=== PATIENT | male | born 1965 | race Caucasian/White ===

== ENCOUNTER 2017-02-14 12:25 | Emergency (ER) | payer BC, OTHER ==
[2017-02-14 12:30] VITALS: RESP 20; TEMP 98
[2017-02-14] MEDS ORDERED: HYDROcodone/APAP 7.5-325MG 1 EACH TAB PO ONE (12:49)
[2017-02-14] MEDS ORDERED: DIPH,PERTUS(ACELL)TETVAC-LF 0.5 ML VIAL IM ONE (12:50)
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
--- NOTE | 2017-02-14 13:39 | XR ---
EXAMINATION TYPE: XR ribs bilat w pa chest x-ray , 9 VIEWS DATE OF EXAM ORDERED: 02/14/2017 HISTORY: Pain. COMPARISON: Previous study dated 11/21/2013. FINDINGS: There is chronic pleural parenchymal change on the right. There are increased interstitial markings at the left lung base. This represents an interval change. Heart size is upper limits of nor mal. There are undisplaced fractures of the left eighth and seventh ribs. There is a minimally displaced f racture of the right seventh, eighth and ninth ribs. No underlying pneumothorax is seen... IMPRESSION: MULTIPLE, BILATERAL RIB FRACTURES.
[2017-02-14] MEDS ORDERED: KETOROLAC 30 MG/ML 1 ML VIAL IM STA (14:17)
[2017-02-14] MEDS ORDERED: MORPHINE SULFATE 10 MG/ML SYRINGE IM STA (14:17)
[2017-02-14 15:08] VITALS: PULSE 106
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
[2017-02-14 15:29] VITALS: BP 166/76
== END 2017-02-14 15:31 | disposition home or self-care (01) ==
LOC: EC 12:25
DX: S22.43XA Multiple fractures of ribs, bilateral, initial encounter for closed fracture (principal); S01.111A Laceration without foreign body of right eyelid and periocular area, initial encounter; Z23 Encounter for immunization; Z79.899 Other long term (current) drug therapy; Y04.2XXA Assault by strike against or bumped into by another person, initial encounter
CPT/HCPCS: 71111; 70450; 71250; 90715; 99284; 90471; 96372 ×2; J2270; J1885

== ENCOUNTER 2017-07-31 02:27 | Emergency (ER) | payer BC, OTHER ==
[2017-07-31] MEDS ORDERED: ACETAMINOPHEN TAB 500 MG TAB PO STA (02:53)
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
[2017-07-31] MEDS ORDERED: HYDROcodone/APAP 5-325MG 1 EACH TAB PO STA (03:53)
[2017-07-31 03:59] VITALS: BP 121/70; PULSE 94; RESP 18
[2017-07-31 04:33] VITALS: TEMP 97.8
== END 2017-07-31 04:38 | disposition home or self-care (01) ==
LOC: EC 02:27
DX: S01.112A Laceration without foreign body of left eyelid and periocular area, initial encounter (principal); S60.222A Contusion of left hand, initial encounter; S60.221A Contusion of right hand, initial encounter; R07.81 Pleurodynia; Z79.899 Other long term (current) drug therapy; Y04.0XXA Assault by unarmed brawl or fight, initial encounter; Y92.009 Unspecified place in unspecified non-institutional (private) residence as the place of occurrence of the external cause
CPT/HCPCS: 12011; 70450; 70486; 71046; 72125; 99285